=== PATIENT | female | born 1955 | race Caucasian/White ===

== ENCOUNTER 2022-08-20 10:48 | Outpatient (CLI) | payer OTHER | END 2022-08-20 10:49 | disposition home or self-care (01) | LOC: CSHMAMMO 10:48 | PROVIDERS: ATTEND Nurse Practitioner Family | DX: Z13.820 Encounter for screening for osteoporosis (principal); Z78.0 Asymptomatic menopausal state | CPT/HCPCS: 77080 ==

== ENCOUNTER 2024-08-10 09:57 | Outpatient (CLI) | payer OTHER | END 2024-08-10 09:58 | disposition home or self-care (01) | LOC: CSHRAD 09:57 | PROVIDERS: ATTEND Family Medicine | DX: M79.641 Pain in right hand (principal) ==